=== PATIENT | male | born 1955 | race Caucasian/White ===

== ENCOUNTER → 2019-10-17 13:43 | Outpatient (POV) | payer MEDICARE, OTHER, SELFPAY | DX: Z00.00 Encounter for general adult medical examination without abnormal findings (principal) ==

== ENCOUNTER → 2020-10-30 10:48 | Outpatient (CLI) | payer MEDICARE, OTHER, SELFPAY | PROVIDERS: PCP Family Medicine; Visit Provider Nurse Practitioner Family | DX: Z20.822 Contact with and (suspected) exposure to COVID-19 (principal) | CPT/HCPCS: U0003 ==

== ENCOUNTER → 2020-11-19 13:59 | Outpatient (POV) | payer MEDICARE, OTHER, SELFPAY | DX: Z00.00 Encounter for general adult medical examination without abnormal findings (principal) ==

== ENCOUNTER 2022-04-25 07:45 | Emergency (ER) | payer MEDICARE, OTHER, SELFPAY ==
[2022-04-25 07:53] VITALS: BP 150/91; PULSE 87; RESP 17; TEMP 37.7; O2SAT 96; BMI 26.9
--- NOTE | 2022-04-25 07:56 | XR_ITS ---
PROCEDURE INFORMATION: Exam: XR Chest Exam date and time: 04/25/2022 8:11 AM Age: 66 years old Clinical indication: Other: Weakness; Additional info: Weakness post-covid TECHNIQUE: Imaging protocol: Radiologic exam of the chest. Views: 1 view. COMPARISON: No relevant prior studies available. FINDINGS: Lungs: Faint opacities in the mid and lower left lung. Pleural spaces: Unremarkable. No pleural effusion. No pneumothorax. Heart/Mediastinum: Calcified mediastinal lymph node. Bones/joints: Unremarkable. IMPRESSION: Faint opacities in the mid and lower left lung.
--- NOTE | 2022-04-25 08:00 | PC.NURSE ---
portable xr at the bedside
[2022-04-25 08:10] LABS: Influenza A, PCR Not Detected (NotDetected); Influenza B, PCR Not Detected (NotDetected)
--- NOTE | 2022-04-25 08:10 | PC.NURSE ---
pt provided blanket. fluids hung per MAR
[2022-04-25 08:23] LABS: Basophils # 0.1 K/mm3 (0-0.2); Basophils % 0.7 % (0.1-2.0); Hematocrit 42.3 % (42.0-52.0); Hemoglobin 13.8 g/dL (14.1-18.0); Lymphocytes # 0.4 K/mm3 (0.7-4.5); Lymphocytes % 6.1 % (10-50); Mean Corpuscular HGB Conc 32.7 g/dL (31.8-35.4); Mean Corpuscular Volume 91.6 fl (80-94); Mean Platelet Volume 9.2 fl (7.4-10.4); Monocytes # 0.4 K/mm3 (0.1-1.0); Monocytes % 5.2 % (1.7-9.3); Neutrophils # 6.3 K/mm3 (1.8-7.8); Neutrophils % 87.9 % (37.0-80.0); Platelet Count 267 K/mm3 (142-424); Red Blood Count 4.62 M/mm3 (4.60-6.20); White Blood Count 7.2 K/mm3 (4.8-10.8)
[2022-04-25 08:24] LABS: Alanine Aminotransferase 24 U/L (12-78); Albumin Level 3.8 g/dl (3.5-5.0); Albumin/Globulin Ratio 1.1 (1.1-1.8); Alkaline Phosphatase 128 U/L (38-126); Anion Gap 14.6 mEq/L (5-15); Aspartate Amino Transferase 31 U/L (17-59); Blood Urea Nitrogen 27 mg/dl (9-20); Calcium 9.1 mg/dl (8.4-10.2); Carbon Dioxide 27 mmol/L (22.0-30.0); Chloride 95 mmol/L (98-107); Creatinine Clearance Estimated 69 mL/min (50-200); Estimated Glomerular Filt Rate 51 ml/min (>60); GFR (African American) 61 ML/MIN (>60); Globulin 3.6 g/dL (1.3-3.2); Glucose 394 mg/dl (74-100); Potassium 4.6 mmoL/L (3.5-5.1); Sodium 132 mmol/L (136-145); Total Protein,Serum 7.4 g/dl (6.3-8.2)
[2022-04-25 08:26] LABS: MANUAL DIFFERENTIAL MANUAL DIFFERENTIAL (MANUAL DIFF)
[2022-04-25 08:28] VITALS: BP 156/97; PULSE 78; RESP 22; O2SAT 99
[2022-04-25 08:30] VITALS: BP 141/81; PULSE 74; RESP 18; O2SAT 100
[2022-04-25 08:34] LABS: Coronavirus 19, PCR Detected (NotDetected)
--- NOTE | 2022-04-25 08:40 | HMH.EDGENADL ---
Discharge Plan Disposition Patient Disposition: Home, Self-Care Condition: Good Chief Complaint: Upper Respiratory Infection Referrals Follow up/Referrals: Forrest Cole MD [Primary Care Provider] - See instructions Activity Restrictions/Add. Instructions Additional Instructions/Restrictions: Please restart your home medications today. ADDITIONAL INSTRUCTIONS FOR COVID-19: Rest, drink plenty of fluids. Tylenol or Ibuprofen for fever and/or aches and pains. Monitor your symptoms. IF YOU HAVE AN EMERGENCY WARNING SIGN (INCLUDING TROUBLE BREATHING), SEEK EMERGENCY MEDICAL CARE IMMEDIATELY. COVID-19 Isolation: People with COVID-19 should isolate for 5 days. Then if they are asymptomatic (no symptoms) or their symptoms are resolving (without fever for 24 hours), follow that by 5 days of wearing a mask when around others to minimize the risk of infecting people you encounter. If you test positive for COVID-19 and never develop symptoms, day 0 is the day of your positive viral test (based on the date you were tested) and day 1 is the first full day after your positive test. If you develop symptoms after testing positive, your 5-day isolation period must start over. Day 0 is your first day of symptoms. Day 1 is the first full day after your symptoms developed. What to do: Stay in a separate room from other household members, if possible. Use a separate bathroom, if possible. Avoid contact with other members of the household and pets. Don?t share personal household items, like cups, towels, and utensils. Wear a mask when around other people if able. Clinical Impressions Clinical Impression: COVID-19 virus infection, Hyperglycemia Discharge ED Provider: Hermann Bentley General Adult HPI General Chief complaint: Upper Respiratory Infection Stated complaint: covid positive weak,can't sleep Time Seen by Provider: 04/25/22 08:40 Mode of Arrival: Ambulatory Source of Information: Patient Limitations: No Limitations Description of Symptoms (Recalled from ER Triage Doc. by RN): pt to ed c/o weakness and diarrhea. pt states he tested covid + last at his pcp office. pt states hes not had an appetite, hasnt't been able to sleep and just feel weak. History of Present Illness HPI narrative: History obtained from patient and . They both tested positive for COVID the week before last. The patient has been sick for about 11 to 12 days. He tested positive for COVID 10 days ago. He is concerned because he still has no energy. He still has a cough. He has not been taking his medications for the past 2 to 3 days. He is diabetic and hypertensive and has high cholesterol. He is a non-smoker. He was not vaccinated against COVID. Related Data Allergies Allergy/AdvReac Type Severity Reaction Status Date / Time sulfamethoxazole Allergy Verified 04/25/22 07:56 [From Bactrim] trimethoprim [From Bactrim] Allergy Verified 04/25/22 07:56 [facility] Social History (Updated 04/25/22 @ 09:21 by Antonina Gale RN) Smoking Status: Never smoker alcohol intake: never current occupational status: other Travel in the last 8 weeks: None ROS Obtained: Yes Systems reviewed as appropriate & no additional complaints except as documented Constitutional Constitutional: Denies fever(s) Cardiovascular Cardiovascular: Denies chest pain Respiratory Respiratory: Reports cough Gastrointestinal Gastrointestingal: Denies diarrhea or vomiting Physical Exam General General appearance: alert and in no apparent distress Head Head exam: atraumatic and normocephalic Eye Eye exam: Present normal appearance and EOMI; Absent conjunctival injection ENT ENT exam: Present normal exam, normal oropharynx, mucous membranes moist and TM's normal bilaterally Neck Neck exam: Present normal inspection and trachea midline Chest Chest inspection: Present normal inspection and symmetric chest wall rise Respiratory R
--- NOTE | 2022-04-25 08:43 | PC.NURSE ---
breakfast tray ordered for patient
[2022-04-25 09:00] VITALS: BP 152/85; PULSE 74; RESP 18; O2SAT 99
[2022-04-25 09:14] VITALS: BP 152/85; PULSE 76; RESP 18; TEMP 37.2; O2SAT 97
[2022-04-25 11:06] LABS: Lymphocytes % 7 % (10-50); Monocytes % 2 % (2-9); Neutrophils % 91 % (42-76); Platelet Estimate Normal; RBC Morphology Normal; Total Cells Counted 100
== END 2022-04-25 09:22 | disposition home or self-care (01) ==
PROVIDERS: Emergency Provider Emergency Medicine; PCP Family Medicine
DX: U07.1 COVID-19 (principal); R06.9 Unspecified abnormalities of breathing; R53.1 Weakness; R05.9 Cough, unspecified; Z28.310 Unvaccinated for COVID-19; I10 Essential (primary) hypertension; N28.9 Disorder of kidney and ureter, unspecified; E78.00 Pure hypercholesterolemia, unspecified; E11.65 Type 2 diabetes mellitus with hyperglycemia; Z88.2 Allergy status to sulfonamides; Z88.8 Allergy status to other drugs, medicaments and biological substances
CPT/HCPCS: 71045; 80053; 85007; 85025; 96360; 96361; 99284; C9803; U0003; U0005

== ENCOUNTER → 2023-03-13 10:24 | Outpatient (CLI) | payer MEDICARE, OTHER, SELFPAY ==
--- NOTE | 2023-03-13 10:45 | XR_ITS ---
PROCEDURE INFORMATION: Exam: XR Left Shoulder Exam date and time: 03/13/2023 10:36 AM Age: 67 years old Clinical indication: Pain; Shoulder; Left; Additional info: Pain no injury TECHNIQUE: Imaging protocol: Radiologic exam of the left shoulder. Views: 2 or more views. COMPARISON: CR XR CHEST PORTABLE 04/25/2022 8:11 AM FINDINGS: Bones/joints: Moderate degenerative changes glenohumeral articulation. Foci of cystic change within the humeral head. AC degenerative arthritic type change. Potential for impingement. Soft tissues: Calcified left hilar lymph nodes partially visualized. IMPRESSION: 1. Moderate degenerative changes glenohumeral articulation. 2. AC degenerative arthritic type change. Potential for impingement.
--- NOTE | 2023-03-13 10:45 | XR_ITS ---
PROCEDURE INFORMATION: Exam: XR Lumbosacral Spine Exam date and time: 03/13/2023 10:40 AM Age: 67 years old Clinical indication: Low back pain; Additional info: Pain no injury TECHNIQUE: Imaging protocol: Radiologic exam of the lumbosacral spine. Views: 2 or 3 views. COMPARISON: No relevant prior studies available. FINDINGS: Bones/joints: Lumbar spondylosis. Multilevel disc degenerative changes most pronounced L1-L2, L4-L5 and L5-S1. Soft tissues: Unremarkable. IMPRESSION: Lumbar spondylosis with multilevel disc degeneration.
== END ==
PROVIDERS: PCP Family Medicine; Visit Provider Family Medicine
DX: M54.50 Low back pain, unspecified (principal); M25.512 Pain in left shoulder
CPT/HCPCS: 72100; 73030

== ENCOUNTER 2023-04-28 08:00 | Outpatient (RCR) | payer MEDICARE, OTHER, SELFPAY ==
--- NOTE | 2023-04-26 09:53 | HMH.RHREAS ---
Rehab Reassessment Rehab OP Re-assessment Start: 03/28/23 13:00 Freq: Status: Active Protocol: Document 04/26/23 08:01 EMMACRISTHIAN (Rec: 04/26/23 09:53 NOELLE [id number]) E-signed By Ludmila Oconnell PT Rehab Re-assessment Subjective Subjective Pt reports he feels 80% better since starting PT. Pt reports pain comes and goes. Pt reports pain is worse in the mornings and with initial movements. Pt reports pain at worst as 8/10. Pt also reports intermittent sharp, shooting pain down his posterior legs with standing/walking. Pt reports he is mostly compliant with his HEP. Objective Objective Notes Lumbar AROM: 85 flex, 20 ext, 20 LF LE MMT: hip flex 5/5, hip ext 4/5 on L 4-/5 on R, hip abd/ add 4+/5 Assessment Progress Assessment Progressing as Expected Assessment Notes Pt has attended 6 PT visits consisting of aerobic exercise , lumbar flexion based exercises, hip/core strengthening, LE stretching, manual therapy and modalities. Pt demonstrated improved lumbar AROM and hip strength this date compared to the initial evaluation. Pt continues to report moderate- severe low back pain and radiating pain into bilateral posterior legs with standing/ walking improved with flexion. Pt would continue to benefit from skilled PT to further improve subjective report of pain/radicular symptoms, LE/ core strength, and flexibility to assist with functional activity tolerance and improve overall QOL. Patient goals met ST/5 Goals Not Met LTG Revised Goals n/a Plan Plan Continue initial POC Frequency of Therapy 2x/week Duration of therapy 4 more weeks Time and Billing
== END 2023-04-28 08:05 | disposition home or self-care (01) ==
LOC: PT 08:00
PROVIDERS: PCP Family Medicine; Visit Provider Family Medicine
DX: M54.50 Low back pain, unspecified (principal)
CPT/HCPCS: 97010; 97014; 97110; 97140; 97163; 97164; 97530; G0283

== ENCOUNTER 2023-11-08 11:14 | Outpatient (POV) | payer MEDICARE, OTHER, SELFPAY | END 2023-11-08 23:59 | disposition home or self-care (01) | LOC: SC 11:15 | PROVIDERS: PCP Family Medicine; Visit Provider Dermatology | DX: Z00.00 Encounter for general adult medical examination without abnormal findings (principal) ==

== ENCOUNTER 2025-02-15 07:54 | Outpatient (CLI) | payer MEDICARE, OTHER, SELFPAY ==
--- OUTSIDE RECORDS SUMMARY | 2021-04-16 04:00 | XMS_ITS | Continuity of Care Document ---
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 start 2 days prior to surgery. 1 drop morning of surgery. continue per post op instructions - Active 3ML/ PATIIENT HAS [employer] metformin 500 mg tablet take 1 tablet by oral route 2 times every day with morning and evening meals 500 MG - Active atorvastatin 40 mg tablet take 1 tablet by oral route every day 40 MG - Active gabapentin 800 mg tablet take 1 tablet by oral route 3 times every day 800 MG - Active glimepiride 4 mg tablet take 1 tablet by oral route every day 4 MG - Active tramadol 50 mg tablet take 1 tablet by oral route every 6 hours as needed 50 MG - Active aspirin 81 mg chewable tablet chew 1 tablet by oral route every day 81 MG - Active naproxen 250 mg tablet take 1 tablet by oral route 2 times every day with food 250 MG - Active lisinopril 20 mg tablet take 1 tablet by oral route every day 20 MG - Active ofloxacin 0.3 % eye drops instill 1 drop by ophthalmic route 4 times every day into surgical eye starting 2 days prior to surgery. - Active prednisolone acetate 1 % eye drops,suspension instill 1 drop 3 times a day into surgical eye start 2 days prior to surgery. 1 drop morning of surgery. taper per post op instructions - Active 5ml. OR A 30 DAY SUPPLY Procedures Procedure Date Post Op Follow Up Visit Post Op Follow Up Visit Post Op Follow Up Visit Extracapsular Cataract With IOL Manual Or Mech Complex Wo Endoscopic Cyclo Extracapsular Cataract With IOL Manual O r Mech Complex Ophthalmic Biometry W Iol Calculation Un ilateral OFFICE/OUTPATIENT VISIT, [facility] Advance Directives Directive Yes / No Effective Date File Name No Information Encounters Encounter Description Practice Location Reason(s) For Visit Diagnoses Date Provider Providers Copied on Encounter [facility] , [address] [place], [address], tel:[phone] [facility] 1 month phaco OD (chief complaint) Encounter for surgical aftercare following surgery on a sense organ Edmar Magaña. [address] [place], [place], [id number]. tel:[phone] Referring Provider: Enrique Myles, [address] [address], [place], [address]. tel:[phone] [facility] , [address] [place], [address], tel:[phone] [facility] POW1 Phaco OD (chief complaint) Encntr for surgical aftcr fol surgery on the sense organs Yulissa Chicas. [address] [place], [place], [id number]. tel:[phone] Referring Provider: Enrique Myles, [address] [address], [place], [address]. tel:[phone] [facility] , [address] [place], [address], [place] tel:[phone] [facility] same day p.phakia f/u (chief complaint) Encounter for surgical aftercare following surgery on a sense organ Edmar Magaña. [address] [place], [place], [id number]. tel:[phone] Referring Provider: Enrique Myles, [address], [place], [address]. tel:[phone] [facility] , [address] [place], [address], [place] tel:[phone] [facility] Surgery [place] Cataract - MATURE, one or both eyes Edmar Magaña. [address] [place], [place], [id number]. tel:[phone] Referring Provider: Enrique Dolan, [address], [place], [address]. tel:[phone] [facility], [address] [place], [address], tel:[phone] [facility] Surgery [facility] Cataract - MATURE, one or both eyes [facility] [place]. [address] [place], [place], [id number], [place]. tel:[phone] Referring Provider: Gómez Acuna, [address] [place], [address]. tel:[phone] OFFICE/OUTPATI ENT VISIT, [facility] , [address] [place], [address], tel:[phone] [facility] Cataract consult (chief complaint) Cataract - MATURE, one or both eyes Edmar Magaña. [address] [place], [place], [id number]. tel:[phone] Referring Provider: Enrique Myles, [address], [place], [address]. tel:[phone] Family History Family Member Type Diagnosis Age At Onset Problem No family history of Diabete s mellitus Father Problem prostate cancer Sister Problem cancer of colon Problem No family history of Hyperte nsion Problem No family history of Glaucom a Problem No family history of Retinal disease Problem No family history of Catarac ts Payers Payer name Insurance type Covered constitution party ID Authoriza tion(s) Medicare [place] [id number] Miguel Angel DENT[employer] - [id number] Social History Type Description Quantity Date Captured Comments Alcohol Use Details Caffeine Use Details Unknown Tobacco Use Status Current non-smoker 21 Smoking Status Never smoker Sex Male Chief Complaint And Reason For Visit From encounter dated '04/16/2021 08:00'. 1 month phaco OD (chief complaint). Description: The 65 year old male presents for evaluation of 1 month phaco OD in the right eye. Pt describes vision to be good. Denies eye pain, flashes, floaters,or headaches. Pt has finished his drops. Reason For Referral Reason For Referral No Information History Of Present Illness Encounter Date Complaint History Of Prese nt Illness 1 month phaco OD The 65 year old male presents for evaluation of 1 month phaco OD in the right eye. Pt describes vision to be good. Denies eye pain, flashes, floaters, or headaches. Pt has finished his drops. POW1 Phaco OD The 65 year old male presents for evaluation of POW1 Phaco OD. Patient states his vision has improved since the last visit. He denies eye pain, flashes, floaters, or headaches. His accidently gave him the Ofloxacin eye drop this morning and discarded the drop once she realized what it was. He is using pred and Prolensa as directed. same day p.phakia f/u The 65 yea r old male presents for same day s/p phaco/IOL in the right eye. Pt. noted some scratchiness OD earlier today but it is gone now. Va. is better but is still blurry somewhat. No eye pain. Cataract consult The 65 year old male presents for evaluation of cataract. Decreased vision OD x 1-2 years. I can't see anything! All I can see is light. I can't tie a fishing line on my hook. Glare problems driving at night. Occasional little itching. No pain or tearing OU. Occasional floaters no new floaters no flashes. (+cataract surgery OS)(-) LASIK/Refractive(-) Eye Trauma(-) Crossed Eye/Lazy Eye(-) Flomax(+asa(-) Contact Use Functional Status Date Functional Assessmen t No Information Instructions Date Instruction Additional Infor osbaldo Impression/Plan Related to Encou nter for surgical aftercare following surgery on a sense organ Impression/Plan Related to Encnt r for surgical aftcr fol surgery on the sense organs Impression/Plan Related to Encou nter for surgical aftercare following surgery on a sense organ Impression/Plan Related to Catar act - MATURE, one or both eyes Assessments Type Assessment Date assessment Encounter for surgic al aftercare following surgery on a sense organ Patient Care Teams Name Effective Dates (start - stop) Status Members No Information
--- OUTSIDE RECORDS SUMMARY | 2023-09-08 05:00 | XMS_ITS ---
Author Organization [facility] Address [address] [place] [address] [address] [place] [id number] Care Team Providers Care Digital Artist Name Role Phone True Cole Primary Care Provider Allergies Allergen (clinical drug ingredient) Drug/Non Drug Allergy documented on EMR Reaction Allergy Type Onset Date Status pioglitazone Actos tremors Drug Allergy Acti ve canagliflozin Invokana elevated cholesterol Drug Allergy Active empagliflozin Jardiance tremors Drug Allergy Act luisa linagliptin / metformin Jentadueto joint pain Drug Allergy Active Substance with sulfonamide structure and antibacterial mechanism of action (substance) Sulfa Antibiotics hives, rash Drug Allergy Active Reason For Referral Reason suspicious lesion be hind right ear Diagnosis 1 Neoplasm of uncertai n behavior of skin (D48.5) Referral Organization [facility] Referring Provider First Name True Mcconnell Referring Provider Last Name Kelsey Referring Provider Speciality Family Pra ctice Referred Organization [facility] OP Referred Provider Sarah Johnson Referred Address [address] [place] [address] [address] [facility] [place] [id number], Referred Provider Specialty Dermatology General Notes Candelaria Day 09/12/19 10:10:36 AM > [phone] no answer, DayCandelaria 09/12/2023 11:18:16 AM > Oct 12 @ 910am....left message for call back Candelaria Day 09/12/2023 11:52:42 AM > pt informed Referral Priority Routine REASON FOR VISIT 6 month check Medications Medication SIG (Take, Route, Frequency, Duration) Notes Start Date End Date Status traMADol HCl 50 MG 1 tab(s) orally ever y 4 hours as needed 09/08/2023 Active Gabapentin 800 MG 1 tab(s) orally Thre e times a day 09/08/2023 Active Sildenafil Citrate 20 MG 1-2 tab(s) orally as directed 11/28/2020 Active Glimepiride 4 MG 1 tab(s) orally Two times a day for 90 days Active Doxazosin Mesylate 4 MG 1 tab(s) orally qhs for 30 day(s) 01/15/2021 Not-Taking metFORMIN HCl 500 MG 1 tab(s) orally 2 t imes a day Active Lisinopril 20 MG 1 tab(s) orally once a day for 90 Active Trulicity 3 MG/0.5ML as directed subcutaneously once a week Active RELION GLUCOSE TEST STRIPS 1 TEST STRIP FINGERSTICK TEST 3 TIMES A DAY OR DIRECTED for 90 DAYS 02/05/2020 Active Naproxen Sodium 220 MG 1 tab(s) orally bid Active Lipitor 40 MG 1 tab(s) orally once a day (at bedtime) for 90 Active RELION GLUCOSE LANCETS 1 LANCET FINGERST ICK TEST 3 TIMES A DAY OR DIRECTED for 90 DAYS 02/05/2020 Active RELION BLOOD GLUCOSE MONITOR 1 METER FINGERSTICK TEST 3 TIMES A DAY OR DIRECTED for 30 DAYS 02/05/2020 Active Novofine Pen Needle 32G X 6 MM as directed Active OneTouch Ultra DIRECTED TEST TID Active Aspirin 1 P.O. Q DAY Active Vital Signs Blood pressure systolic 134 mm Hg 09/08/19 24 Blood pressure diastolic 78 mm Hg 024 Heart Rate 100 /min 09/08/2023 Height 72 in 09/08/2023 Weight 208.6 lbs 09/08/2023 BMI 28.29 kg/m2 09/08/2023 Encounters Encounter Location Date Provider Diagnosis [facility] [address] [facility] [address] [place], [place] [id number] 09/08/2023 R Jayesh Cole Essential hypertensi on I10 ; Type 2 diabetes mellitus with diabetic polyneuropathy E11.42 ; Primary osteoarthritis M19.91 ; Dyslipidemia E78.5 ; Low back pain at multiple sites M54.50 ; Impingement syndrome of left shoulder M75.42 and Neoplasm of uncertain behavior of skin D48.5 Assessments Encounter Date Diagnosis (ICD Code) Assessment Notes Treatment Notes Treatment Clinical Notes Section Notes 09/08/2023 Essential hypertension (ICD-10 - I10) 09/08/2023 Type 2 diabetes mellitus with diabetic polyneuropathy (ICD-10 - E11.42) 09/08/2023 Primary osteoarthritis (ICD-10 - M19.91) 09/08/2023 Dyslipidemia (ICD-10 - E78.5) 09/08/2023 Low back pain at multiple sites (ICD-10 - M54.50) 09/08/2023 Impingement syndrome of left shoulder (ICD-10 - M75.42) Offered ortho referral but he declines for now 09/08/2023 Neoplasm of uncertain behavior of skin (ICD-10 - D48.5) 09/08/2023 Other Order given to obtain labs prior to next visit Plan Of Treatment Medication Medication Name Sig Start Date Stop Date Notes traMADol HCl 50 MG 1 tab(s) orally ever y 4 hours as needed 09/08/2023 Gabapentin 800 MG 1 tab(s) orally Three times a day 2023 metFORMIN HCl 500 MG 1 tab(s) orally 2 times a day Lisinopril 20 MG 1 tab(s) orally once a day for 90 Trulicity 3 MG/0.5ML as directed subcuta neously once a week Lipitor 40 MG 1 tab(s) orally once a day (at bedtime) for 90 Treatment Notes Assessment Notes Impingement syndrome of left shoulder Of fered ortho referral but he declines for now Other Order given to obtai n labs prior to next visit Referrals Referral Date Details 09/09/2023 09/09/2023, suspicio us lesion behind right ear, Sarah Johnson, [address] [place], [place], [phone], Next Appt Details Follow Up: 6 Months, Reason: Provider Name:True Basilio, 03/21/2025 09:00:00 AM, [address], [place], [place], [id number], Progress Notes * SUE MOONEY JR RDOB: (69 yo M)Acc No.[id number]:09/08/2023 Progress Notes Patient: S SUE SANTOYO JR Provider: True Cole M.D. :1955 A ge:68 Y S ex:Male Date:09/08/2023 Address:[address], [place], [id number] Subjective: * Chief Complaints: * 1 . 6 month check. * HPI: E ndocrinology: Pt is here for a 6 month check up. He brings in recent labs for review. Pt needs refills today. He has been taking medication as directed but not compliant with diet. C ardiology: Denies : Chest Pain. D enies : Short of Breath. D enies : Palpitations. D enies : Leg Edema. R heumatology: He states his back pain is better after course of physical therapy and has been taking a B12 supplement which he also thinks helps. He tells me that physical therapy did not address his shoulder issue. He still has limited range of motion but is not having much pain. D ermatology: He complains of a skin lesion behind his right ear that has been present for several months. * ROS: G ASTROENTEROLOGY: no V omiting. n o D iarrhea. M USCULOSKELETAL: no J oint stiffness. J oint pain y es. ? N EUROLOGY: no H eadache. n o D izziness. * Medical History: D M, Hyperlipidemia, Diabetic peripheral neuropathy, HBP, Declines Pneumovax 02/2016, 08/2016, Medication noncompliance with insulin, Declines colon cancer screening - 08/2018, 08/2019, 11/2020, 05/2021, 02/2022, Declines all vaccines 08/2019, 11/2020, 05/2021, 02/2022. * Surgical History: 3 .5 cm basal cell removed from back by MOHS procedure 2006, left cataract 01/2011, right cataract 03/2021. * Hospitalization/Major Diagno stic Procedure: N ONE . * Family History: F ather: alive 73 yrs. M other: alive 73 yrs. 5 sister(s) . . * Social History: C URRENT TOBACCO USE S moking Status: Patient does NOT smoke. C affeine: no, frequency:DAILY. Home smoke detector use: yes. Marital Status: . Past smoking status: no. Recreational drug use: no. Alcohol: no, Type: , Frequency: ,Years: , Determination:. * Medications: T aking Aspirin 1 P.O. Q DAY , Taking RELION BLOOD GLUCOSE MONITOR 1 METER FINGERSTICK TEST 3 TIMES A DAY OR DIRECTED , Taking RELION GLUCOSE LANCETS LANCETS 1 LANCET FINGERSTICK TEST 3 TIMES A DAY OR DIRECTED , Taking OneTouch Ultra DIRECTED TEST TID , Taking Novofine Pen Needle 32G X 6 MM Miscellaneous as directed , Taking Naproxen Sodium 220 MG Capsule 1 tab(s) orally bid , Taking RELION GLUCOSE TEST STRIPS TEST STRIPS 1 TEST STRIP FINGERSTICK TEST 3 TIMES A DAY OR DIRECTED , Taking Sildenafil Citrate 20 MG Tablet 1-2 tab(s) orally as directed , Taking Trulicity 3 MG/0.5ML Solution Pen-injector as directed subcutaneously once a week , Taking Lipitor 40 MG Tablet 1 tab(s) orally once a day (at bedtime) , Taking Lisinopril 20 MG Tablet 1 tab(s) orally once a day , Taking metFORMIN HCl 500 MG Tablet 1 tab(s) orally 2 times a day , Taking Glimepiride 4 MG Tablet 1 tab(s) orally Two times a day , Taking Gabapentin 800 MG Tablet 1 tab(s) orally Three times a day , Taking traMADol HCl 50 MG Tablet 1 tab(s) orally every 4 hours as needed , Not- Taking Doxazosin Mesylate 4 MG Tablet 1 tab(s) orally qhs , Medication List reviewed and reconciled with the patient * Allergies: S ulfa Antibiotics: hives, rash, Actos: tremors - Side Effects, Invokana: elevated cholesterol - Side Effects, Jardiance: tremors, Jentadueto: joint pain. Objective: * Vitals: W t:208.6, Temp:98.4, BP:134/78, HR:100, Nurse:FADY, Ht: 72, BMI:28.29. * Examination: C ardiology: General Appearance: p leasant, NAD. . Heart sounds: R RR, normal S1, S2. Murmur, click , gallop: n one. Extremities: n o leg edema. Left shoulder shows no deformity. There is no bony tenderness. Range of motion is decreased with abduction now to less than 90 degrees.. G eneral Examination: Skin: O naz the right mastoid, there is a 1 cm raised flesh-colored lesion which appears to have a small central ulceration. No tenderness or drainage..? Assessment: * Assessment: 1. E ssential hypertension - I10 (Primary) 2 . T ype 2 diabetes mellitus with diabetic polyneuropathy - E11.42 3 . P rimary osteoarthritis - M19.91 ? 4 . D yslipidemia - E78.5 5 . L ow back pain at multiple sites - M54.50 6 . I mpingement syndrome of left shoulder - M75.42 7 .?Neoplasm of uncertain behavior of skin - D48.5 Plan: * Treatment: 2. T ype 2 diabetes mellitus with diabetic polyneuropathy Refill metFORMIN HCl Tablet, 500 MG, 1 tab(s), orally, 2 times a day, 360, Refills 1; R efill Trulicity Solution Pen-injector, 3 MG/0.5ML, as directed, subcutaneously, once a week, 4, Refills 5; Refill Gabapentin Tablet, 800 MG, 1 tab(s), orally, Three times a day, 270, Refills 1. ? 3. P rimary osteoarthritis Refill traMADol HCl Tablet, 50 MG, 1 tab(s), orally, every 4 hours as needed, 180, Refills 1. ? 4. D yslipidemia Refill Lipitor Tablet, 40 MG, 1 tab(s), orally, once a day (at bedtime), 90, 90, Refills 1. ? 5. I mpingement syndrome of left shoulder Notes: Offered ortho referral but he declines for now 6. N eoplasm of uncertain behavior of skin Referral To:[facility] Reason:suspicious lesion behind right ear 7. O thers Notes: Order given to obtain labs prior to next visit * Follow Up: 6 Months * Billing Information: * Visit Code: 99475 Office Visit, Est Pt., Level 4. * Procedure Codes: * Electronic signature of True Cole MD on 02/15/2025 at 07:58 AM EDT Sign off status: Pending * Provider: True Cole M.D. Date: 0 09/08/2023 Generated for Joei tayler/Sherin/eTransmitting on: 0 02/15/2025 07:58 AM EDT History and Physical Notes * HPI (History of Present Illness) Category Sub-Category Detail Notes Category Not es Endocrinology He has been ta latesha medication as directed but not compliant with diet. Cardiology Short of Breath Chest Pain Palpitations Leg Edema Rheumatology He tells me gus t physical therapy did not address his shoulder issue. He still has limited range of motion but is not having much pain. Examination Category Sub-Category Detail Notes Category Not es General Examination Skin: Over the rig ht mastoid, there is a 1 cm raised flesh-colored lesion which appears to have a small central ulceration. No tenderness or drainage. Cardiology Heart sounds: RRR, normal S1, S2 Extremities: no leg edema. Left s houlder shows no deformity. There is no bony tenderness. Range of motion is decreased with abduction now to less than 90 degrees. Murmur, click , gallop: none General Appearance: pleasant, NAD. Consultation Request Notes Referral Date Referring Provider Referred Provider Not es 09/09/2023 True Cole Audra suspici ous lesion behind right ear
--- OUTSIDE RECORDS SUMMARY | 2024-03-08 05:00 | XMS_ITS ---
[facility] Address [address] [facility] [address] [place] [id number] Care Team Providers Care Senior Counsel Name Role Phone True Cole Primary Care Provider [phone] Allergies Allergen (clinical drug ingredient) Drug/Non Drug [...] Sulfa Antibiotics hives, rash Drug Allergy Active REASON FOR VISIT 6 months, Needs urine microalbumin, colon cancer screening, diabetic eye exam, & Prevnar vaccine, See lab results drawn by Dr. Lang's office 02/20/24 and 02/27/2024 in patient docs Medications Medication SIG (Take, Route, Frequency, Duration) Notes Start Date End Date Status Lisinopril 20 MG 1 tab(s) orally once a day for 90 Active Lipitor 40 MG 1 tab(s) orally once a day (at bedtime) for 90 Active Naproxen Sodium 220 MG 1 tab(s) orally bid Not-Taking Doxazosin Mesylate 4 MG 1 tab(s) orally qhs for 30 day(s) 01/15/2021 Not-Taking Sildenafil Citrate 20 MG 1-2 tab(s) orally as directed 11/28/2020 Not-Taking Tadalafil 20 MG 1 tablet as needed O rally as directed 03/08/2024 Active Glimepiride 4 MG 1 tab(s) orally Two times a day for 90 days Active OneTouch Ultra DIRECTED TEST TID Active RELION GLUCOSE TEST STRIPS 1 TEST STRIP FINGERSTICK TEST 3 TIMES A DAY OR DIRECTED for 90 DAYS 02/05/2020 Active Novofine Pen Needle 32G X 6 MM as directed Active Trulicity 3 MG/0.5ML as directed subcutaneously once a week Active RELION BLOOD GLUCOSE MONITOR 1 METER FINGERSTICK TEST 3 TIMES A DAY OR DIRECTED for 30 DAYS 02/05/2020 Active Aspirin 1 P.O. Q DAY Active Gabapentin 800 MG 1 tab(s) orally Thre e times a day 03/08/2024 Active RELION GLUCOSE LANCETS 1 LANCET FINGERST ICK TEST 3 TIMES A DAY OR DIRECTED for 90 DAYS 02/05/2020 Active traMADol HCl 50 MG 1 tab(s) orally ever y 4 hours as needed 03/08/2024 Active metFORMIN HCl 500 MG 1 tab(s) orally 2 t imes a day Active Problems Problem Type SNOMED Code ICD Code Onset Dates Problem Status W/U Status Risk Notes Problem Male erectile disorder (148956553) Male erectile disorder (F52.21) Active confirmed Problem Chronic kidney disease stage 3A (disorder) (114656427) Chronic kidney disease, stage 3a (N18.31) Active confirmed Vital Signs Blood pressure systolic 154 mm Hg 03/08/20 24 Blood pressure diastolic 78 mm Hg 024 Heart Rate 76 /min 03/08/2024 Height 72 in 03/08/2024 Weight 211.4 lbs 03/08/2024 BMI 28.67 kg/m2 03/08/2024 Encounters Encounter Location Date [facility] [address] [id number] 03/08/2024 True Cole Essential hypertensi on I10 ; Type 2 diabetes mellitus with diabetic polyneuropathy E11.42 ; Primary osteoarthritis M19.91 ; Dyslipidemia E78.5 ; Low back pain at multiple sites M54.50 ; Male erectile disorder F52.21 and Chronic kidney disease, stage 3a N18.31 Assessments Encounter Date Diagnosis (ICD Code) Assessment Notes Treatment Notes Treatment Clinical Notes Section Notes 03/08/2024 Essential hypertension (ICD-10 - I10) 03/08/2024 Type 2 diabetes mellitus with diabetic polyneuropathy (ICD-10 - E11.42) 03/08/2024 Primary osteoarthritis (ICD-10 - M19.91) 03/08/2024 Dyslipidemia (ICD-10 - E78.5) 03/08/2024 Low back pain at multiple sites (ICD-10 - M54.50) 03/08/2024 Male erectile disorder (ICD-10 - F52.21) 03/08/2024 Chronic kidney disease, stage 3a (ICD-10 - N18.31) Encouraged increased fluid intake, 80 - 100 ounces per day Plan Of Treatment Medication Medication Name Sig Start Date Stop Date Notes Lisinopril 20 MG 1 tab(s) orally once a day for 90 Lipitor 40 MG 1 tab(s) orally once a day (at bedtime) for 90 Tadalafil 20 MG 1 tablet as needed Orally as directed 02/26 Trulicity 3 MG/0.5ML as directed subcuta neously once a week Gabapentin 800 MG 1 tab(s) orally Three times a day 2023 traMADol HCl 50 MG 1 tab(s) orally ever y 4 hours as needed 03/08/2024 metFORMIN HCl 500 MG 1 tab(s) orally 2 times a day Treatment Notes Assessment Notes Chronic kidney disease, stage 3a Encoura ged increased fluid intake, 80 - 100 ounces per day Next Appt Details Follow Up: 6 Months, Reason: Provider Name:True Basilio, 03/21/2025 09:00:00 AM, [address], [address], [place], [place], [phone], Progress Notes * SUE MOONEY JR RDOB: (69 yo M)Acc No.[id number]:03/08/2024 Progress Notes Patient: Twan SANTOYO JR SUE Biswas Provider: True Cole M.D. :1955 A ge:68 Y S ex:Male Date:03/08/2024 Address:[address], [place], [id number] Subjective: * Chief Complaints: * 1 . 6 months. 2. Needs urine microalbumin, colon cancer screening, diabetic eye exam, & Prevnar vaccine. 3. See lab results drawn by Dr. Lang's office 02/20/24 and 02/27/2024 in patient docs. * HPI: C ardiology: He returns for scheduled checkup and refills. He had blood work done earlier in the week. He notes occasional mild swelling on the dorsum of his left foot. Denies : Chest Pain. D enies : Short of Breath. D enies : Palpitations. E ndocrinology: He feels like he is compliant with his diet. His weight has been relatively stable. M dafne Reproductive: He continues to have issues with erectile dysfunction. He did not see any benefit with the sildenafil. * ROS: G ASTROENTEROLOGY: no V omiting. n o D iarrhea. M USCULOSKELETAL: no J oint stiffness. J oint pain y es. ? N EUROLOGY: no H eadache. n o D izziness. * Medical History: D M, Hyperlipidemia, Diabetic peripheral neuropathy, HBP, Declines Pneumovax 02/2016, 08/2016, Medication noncompliance with insulin, Declines colon cancer screening - 08/2018, 08/2019, 11/2020, 05/2021, 02/2022, 02/2024, Declines all vaccines 08/2019, 11/2020, 05/2021, 02/2022, 02/2024, Mild proliferative diabetic neuropathy - followed by Dr. Boss. * Surgical History: 3 .5 cm basal cell removed from back by MOHS procedure 2006, left cataract 01/2011, right cataract 03/2021, Skin Cancer Removed from Upper Back 2023, Skin Lesion Removed from Behind Right Ear 2023. * Hospitalization/Major Diagno stic Procedure: N ONE [...] ,Years: , Determination:. * Medications: T aking Lipitor 40 MG Tablet 1 tab(s) orally once a day (at bedtime) , Taking Lisinopril 20 MG Tablet 1 tab(s) orally once a day , Taking metFORMIN HCl 500 MG Tablet 1 tab(s) orally 2 times a day , Taking Trulicity 3 MG/0.5ML Solution Pen-injector as directed subcutaneously once a week , Taking Gabapentin 800 MG Tablet 1 tab(s) orally Three times a day , Taking traMADol HCl 50 MG Tablet 1 tab(s) orally every 4 hours as needed , Taking Aspirin 1 P.O. Q DAY , Taking RELION BLOOD GLUCOSE MONITOR 1 METER FINGERSTICK TEST 3 TIMES A DAY OR DIRECTED , Taking RELION GLUCOSE LANCETS LANCETS 1 LANCET FINGERSTICK TEST 3 TIMES A DAY OR DIRECTED , Taking OneTouch Ultra DIRECTED TEST TID , Taking Novofine Pen Needle 32G X 6 MM Miscellaneous as directed , Taking RELION GLUCOSE TEST STRIPS TEST STRIPS 1 TEST STRIP FINGERSTICK TEST 3 TIMES A DAY OR DIRECTED , Taking Glimepiride 4 MG Tablet 1 tab(s) orally Two times a day , Not-Taking Naproxen Sodium 220 MG Capsule 1 tab(s) orally bid , Not-Taking Sildenafil Citrate 20 MG Tablet 1-2 tab(s) orally as directed , Not-Taking Doxazosin Mesylate 4 MG Tablet 1 tab(s) orally qhs , Medication List reviewed and reconciled with the patient * Allergies: S ulfa Antibiotics: hives, rash, Actos: tremors - Side Effects, Invokana: elevated cholesterol - Side Effects, Jardiance: tremors, Jentadueto: joint pain. Objective: * Vitals: W t:211.4, Temp:98.5, BP:154/78, HR:76, Nurse:FADY, Ht: 72, BMI:28.67. * Examination: C ardiology: General Appearance: p leasant, NAD. . Heart sounds: R RR, normal S1, S2. Murmur, click , gallop: n one. Extremities: n o leg edema. * Physical Examination: L ABS: See labs r charlette with patient. A1c is improved but not at goal. Creatinine mildly elevated.. Assessment: * Assessment: 1. E ssential hypertension - I10 (Primary) 2 . T ype 2 diabetes mellitus with diabetic polyneuropathy - E11.42 3 . P rimary osteoarthritis - M19.91 ? 4 . D yslipidemia - E78.5 5 . L ow back pain at multiple sites - M54.50 6 . M dafne erectile disorder - F52.21 7 . C hronic kidney disease, stage 3a - N18.31 Plan: * Treatment: 2. T ype 2 diabetes mellitus with diabetic polyneuropathy Refill metFORMIN HCl Tablet, 500 MG, 1 tab(s), orally, 2 times a day, 360, Refills 1; C ontinue Trulicity Solution Pen-injector, 3 MG/0.5ML, as directed, subcutaneously, once a week; R efill Gabapentin Tablet, 800 MG, 1 tab(s), orally, Three times a day, 270, Refills 1. 3. P rimary osteoarthritis Refill traMADol HCl Tablet, 50 MG, 1 tab(s), orally, every 4 hours as needed, 180, Refills 1. ? 4. D yslipidemia Refill Lipitor Tablet, 40 MG, 1 tab(s), orally, once a day (at bedtime), 90, 90, Refills 1. ? 5. M dafne erectile disorder Start Tadalafil Tablet, 20 MG, 1 tablet as needed, Orally, as directed, 20. 6. C hronic kidney disease, stage 3a Notes: Encouraged increased fluid intake, 80 - 100 ounces per day * Procedure Codes: 3 051F HG A1C>EQUAL 7.0%<8.0% * Follow Up: 6 Months * Billing Information: * Visit Code: 07793 Office Visit, Est Pt., Level 4. * Procedure Codes: 3051F HG A1C>EQUAL 7.0%<8.0%. * Electronic signature of True Cole MD on 02/15/2025 at 07:58 AM EDT Sign off status: Pending * Provider: True Cole M.D. Date: 03/08/2024 Generated for Sandra lester/Sherin/Ricardo on: 02/15/2025 07:58 AM EDT History and Physical Notes * HPI (History of Present Illness) Category Sub-Category Detail Notes Category Not es Cardiology Short of Breath Chest Pain Palpitations Physical Examination Category Sub-Category Detail Notes Section Note s LABS See labs reviewed with jones resendez. A1c is improved but not at goal. Creatinine mildly elevated. Examination Category Sub-Category Detail Notes Category Not es Cardiology Heart sounds: RRR, normal S1, S2 Extremities: no leg edema Murmur, click , gallop: none General Appearance: pleasant, NAD.
--- OUTSIDE RECORDS SUMMARY | 2024-09-18 05:00 | XMS_ITS ---
Author Organization [facility] Address [address] [facility] [address] [place] [id number] Care Team Providers Care Cash Applications Analyst Name Role Phone True Cole Primary [facility] [...] Sulfa Antibiotics hives, rash Drug Allergy Active Results Component Value Reference Range Notes colonoscopy Reviewed date:09/18/2024 10:23:00 AM Interpretation:declines Performing Lab: Notes/Report: declines REASON FOR VISIT 6 months check and AWV Medications Medication SIG (Take, Route, Frequency, Duration) Notes Start Date End Date Status Tadalafil 20 MG 1 tablet as needed O rally as directed Active traMADol HCl 50 MG 1 tab(s) orally ever y 4 hours as needed Active Naproxen Sodium 220 MG 1 tab(s) orally bid Not-Taking Glimepiride 4 MG 1 tab(s) orally Two times a day for 90 days Active Trulicity 3 MG/0.5ML INJECT 3 MG (0.5 ML ) UNDER THE SKIN ONCE A WEEK for 84 Active RELION GLUCOSE TEST STRIPS 1 TEST STRIP FINGERSTICK TEST 3 TIMES A DAY OR DIRECTED for 90 DAYS 02/05/2020 Active Novofine Pen Needle 32G X 6 MM as directed Active OneTouch Ultra DIRECTED TEST TID Active RELION GLUCOSE LANCETS 1 LANCET FINGERST ICK TEST 3 TIMES A DAY OR DIRECTED for 90 DAYS 02/05/2020 Active RELION BLOOD GLUCOSE MONITOR 1 METER FINGERSTICK TEST 3 TIMES A DAY OR DIRECTED for 30 DAYS 02/05/2020 Active metFORMIN HCl 500 MG 1 tab(s) orally 2 t imes a day Active Lisinopril 20 MG 1 tab(s) orally once a day for 90 Active Aspirin 1 P.O. Q DAY Active Gabapentin 800 MG 1 tab(s) orally Thre e times a day Active Trulicity 3 MG/0.5ML as directed subcutaneously once a week Active Doxazosin Mesylate 4 MG 1 tab(s) orally qhs for 30 day(s) 01/15/2021 Not-Taking Sildenafil Citrate 20 MG 1-2 tab(s) orally as directed 11/28/2020 Not-Taking Lipitor 40 MG 1 tab(s) orally once a day (at bedtime) for 90 Active Vital Signs Blood pressure systolic 156 mm Hg 09/18/19 25 Blood pressure diastolic 78 mm Hg 025 Heart Rate 97 /min 09/18/2024 Height 72 in 09/18/2024 Weight 209.4 lbs 09/18/2024 BMI 28.40 kg/m2 09/18/2024 Encounters Encounter Location Date Provider Diagnosis [facility] [address] [facility] [address] [place] [address], [place] [id number] 09/18/2024 True Cole Adult general medica l examination Z00.00 ; Essential hypertension I10 ; Type 2 diabetes mellitus with diabetic polyneuropathy E11.42 ; Primary osteoarthritis M19.91 ; Dyslipidemia E78.5 ; Low back pain at multiple sites M54.50 ; Male erectile disorder F52.21 ; Chronic kidney disease, stage 3a N18.31 ; Myalgia M79.10 and BMI 28.0-28.9,adult Z68.28 Assessments Encounter Date Diagnosis (ICD Code) Assessment Notes Treatment Notes Treatment Clinical Notes Section Notes 09/18/2024 Adult general medical examination (ICD-10 - Z00.00) Patient instructed to return to office Annually for Annual Wellness Visits to include annual screenings of Pain assessment, Functional Ability assessment, Cognitive Ability assessment, Fall Risk assessment, Depression screening and Bladder control screening. 09/18/2024 Essential hypertension (ICD-10 - I10) 09/18/2024 Type 2 diabetes mellitus with diabetic polyneuropathy (ICD-10 - E11.42) 09/18/2024 Primary osteoarthritis (ICD-10 - M19.91) 09/18/2024 Dyslipidemia (ICD-10 - E78.5) 09/18/2024 Low back pain at multiple sites (ICD-10 - M54.50) 09/18/2024 Male erectile disorder (ICD-10 - F52.21) 09/18/2024 Chronic kidney disease, stage 3a (ICD-10 - N18.31) Encouraged increased fluid intake, 80 - 100 ounces per day 09/18/2024 Myalgia (ICD-10 - M79.10) Recommend trial of CoQ10 supplement 09/18/2024 BMI 28.0-28.9,adult (ICD-10 - Z68.28) Plan Of Treatment Medication Medication Name Sig Start Date Stop Date Notes Tadalafil 20 MG 1 tablet as needed Orally as directed traMADol HCl 50 MG 1 tab(s) orally ever y 4 hours as needed metFORMIN HCl 500 MG 1 tab(s) orally 2 times a day Lisinopril 20 MG 1 tab(s) orally once a day for 90 Gabapentin 800 MG 1 tab(s) orally Three times a day Trulicity 3 MG/0.5ML as directed subcuta neously once a week Lipitor 40 MG 1 tab(s) orally once a day (at bedtime) for 90 Treatment Notes Assessment Notes Adult general medical examination Patien t instructed to return to office Annually for Annual Wellness Visits to include annual screenings of Pain assessment, Functional Ability assessment, Cognitive Ability assessment, Fall Risk assessment, Depression screening and Bladder control screening. Chronic kidney disease, stage 3a Encoura ged increased fluid intake, 80 - 100 ounces per day Myalgia Recommend trial of C oQ10 supplement Next Appt Details Follow Up: 6 Months, Reason: Provider Name:True Basilio, 03/21/2025 09:00:00 AM, [address], [address] , [place], [place], [id number], Progress Notes * SUE MOONEY JR RDOB: (69 yo M)Acc No.[id number]:09/18/2024 Annual Wellness Visit Patient: SUE NOEL JR Provider: True Cole M.D. :1955 A ge:69 Y S ex:Male Date:09/18/2024 Address:[facility] [address] [place], [id number] Subjective: * Chief Complaints: * 1 . 6 months check and AWV. * HPI: H PI: He comes in today for scheduled checkup and refills. He had recent blood work for review. His only complaint today is some muscle pain in his legs and lower back which is chronic in nature. He thinks it may be related to metformin but more likely related to his Lipitor. He continues to complain of some paresthesias in his feet from his neuropathy. * ROS: G ASTROENTEROLOGY: no V omiting. n o D iarrhea. M USCULOSKELETAL: no J oint stiffness. J oint pain y es. ? N EUROLOGY: no H eadache. n o D izziness. O PTHALMOLOGY: Negative for d enies vision issues. * Medical History: D M, Hyperlipidemia, Diabetic [...] TIMES A DAY OR DIRECTED , Taking metFORMIN HCl 500 MG Tablet 1 tab(s) orally 2 times a day , Taking Gabapentin 800 MG Tablet 1 tab(s) orally Three times a day , Taking Tadalafil 20 MG Tablet 1 tablet as needed Orally as directed , Taking Trulicity 3 MG/0.5ML Solution Auto-injector INJECT 3 MG (0.5 ML) UNDER THE SKIN ONCE A WEEK , Taking Glimepiride 4 MG Tablet 1 tab(s) orally Two times a day , Taking Lisinopril 20 MG Tablet 1 tab(s) orally once a day , Taking Lipitor 40 MG Tablet 1 tab(s) orally once a day (at bedtime) , Taking traMADol HCl 50 MG Tablet 1 tab(s) orally every 4 hours as needed , Not-Taking Naproxen Sodium 220 MG Capsule 1 tab(s) orally bid , Not-Taking Sildenafil Citrate 20 MG Tablet 1-2 tab(s) orally as directed , Not- Taking Doxazosin Mesylate 4 MG Tablet 1 tab(s) orally qhs , Medication List reviewed and reconciled with the patient * Allergies: S ulfa Antibiotics: hives, rash, Actos: tremors - Side Effects, Invokana: elevated cholesterol - Side Effects, Jardiance: tremors, Jentadueto: joint pain. Objective: * Vitals: W t:209.4, Temp:98.0, BP:156/78, HR:97, Nurse:FADY, Ht: 72, BMI:28.40. * Examination: C ardiology: General Appearance: p leasant, NAD. Weight is stable.? Heart sounds: R RR, normal S1, S2. Murmur, click , gallop: n one. Extremities: n o leg edema. * Physical Examination: G ENERAL: Pain Assessment: P ain level: 5, on a scale of 0-10 (with 10 being extreme pain). F unctional Status Assessment: P atient response to question of how often physical health interferes with daily activities: . Almost never Able to perform ADLs-including meal preparation, grocery shopping, housework, laundry, taking medications or handling finances. Cognitive Status: alert and oriented. Ambulation Status: Fully ambulatory . F all Risk Assessment: I ndependant in ambulation, adequate lighting in home. Patient has fallen or had trouble walking within the past 12 months. D epression Screening: George escoto depressed mood or anxiety. Describes emotional health as: positive. B ladder Control Screening: George escoto problems. Assessment: * Assessment: 1. A dult general medical examination - Z00.00 (Primary) 2 . E ssential hypertension - I10 3 . T ype 2 diabetes mellitus with diabetic polyneuropathy - E11.42 4 . P rimary osteoarthritis - M19.91 5 . D yslipidemia - E78.5 6 . L ow back pain at multiple sites - M54.50 7 . M dafne erectile disorder - F52.21 8 . C hronic kidney disease, stage 3a - N18.31? 9. M yalgia - M79.10 1 0. B MD 28.0-28.9,adult - Z68.28 ? Plan: * Treatment: 2. E ssential hypertension Refill Lisinopril Tablet, 20 MG, 1 tab(s), orally, once a day, 90, 90, Refills 1. 3. T ype 2 diabetes mellitus with diabetic polyneuropathy Refill metFORMIN HCl Tablet, 500 MG, 1 tab(s), orally, 2 times a day, 360, Refills 1; C ontinue Trulicity Solution Pen-injector, 3 MG/0.5ML, as directed, subcutaneously, once a week; R efill Gabapentin Tablet, 800 MG, 1 tab(s), orally, Three times a day, 270, Refills 1. 4. P rimary osteoarthritis Continue traMADol HCl Tablet, 50 MG, 1 tab(s), orally, every 4 hours as needed. 5. D yslipidemia Refill Lipitor Tablet, 40 MG, 1 tab(s), orally, once a day (at bedtime), 90, 90, Refills 1. ? 6. M dafne erectile disorder Continue Tadalafil Tablet, 20 MG, 1 tablet as needed, Orally, as directed. 7. C hronic kidney disease, stage 3a Notes: Encouraged increased fluid intake, 80 - 100 ounces per day 8. M yalgia Notes: Recommend trial of CoQ10 supplement * Imaging: * I maging: colonoscopy (Performed Date - 09/18/2024) d eclines * Procedure Codes: G 0439 ANNUAL WELLNESS VST; PPS SUBSQT VST, G0444 ANNUAL DEPRESSION SCREENING 15 MIN, 1090F PRES/ABSN URINE INCON ASSESS, 3288F FALL RISK ASSESSMENT DOCD, 1170F FXNL STATUS ASSESSED, 1159F MED LIST DOCD IN RCRD, 1003F LEVEL OF ACTIVITY ASSESS, 3052F HG A1C>EQUAL 8.0%<EQUAL 9.0%, 1036F TOBACCO NON-USER, 1125F AMNT PAIN NOTED PAIN PRSNT, G8510 NEG SCR Depression PT NOT ELIG F/U/PLN DOC, G8753 MOST RECENT SYSTOLIC BP >= 140MM HG, G8754 MOST RECENT DIASTOLIC BP < 90MM HG * Preventive Medicine: Counseling: E motional health: D iscussed ways to improve socialization. B ladder control: M ethods of controlling or managing leakage of urine discussed. E xercise: Patient advised to start, increase or maintain level of exercise/physical activity. I njury prevention: F all prevention discussed. Discussed need for cane/walker. Potential trip hazards discussed. Immunizations: P neumococcal r ecommended. I nfluenza r ecommended seasonally. Screening / Special Tests: C olonoscopy R ecent history:, declined in the past, recommended. P SA , normal. D iabetic Retinal Eye Exam R ecent history: 02/10/2024. * Follow Up: 6 Months * Billing Information: * Visit Code: 23728 Office Visit, Est Pt., Level 3. Modifiers: 25 * Procedure Codes: G0439 ANNUAL WELLNESS VST; PPS SUBSQT VST. G0444 ANNUAL DEPRESSION SCREENING 15 MIN. 1090F PRES/ABSN URINE INCON ASSESS. 3288F FALL RISK ASSESSMENT DOCD. 1170F FXNL STATUS ASSESSED. 1159F MED LIST DOCD IN RCRD. 1003F LEVEL OF ACTIVITY ASSESS. 3052F HG A1C>EQUAL 8.0%<EQUAL 9.0%. 1036F TOBACCO NON-USER. 1125F AMNT PAIN NOTED PAIN PRSNT. G8510 NEG SCR Depression PT NOT ELIG F/U/PLN DOC. G8753 MOST RECENT SYSTOLIC BP >= 140MM HG. G8754 MOST RECENT DIASTOLIC BP < 90MM HG. * Electronic signature of True Cole MD on 02/15/2025 at 07:58 AM EDT Sign off status: Pending * Provider: True Cole M.D. Date: 0 09/18/2024 Generated for Joei tayler/Sherin/eTransmitting on: 0 02/15/2025 07:58 AM EDT History and Physical Notes * Physical Examination Category Sub-Category Detail Notes Section Note s GENERAL Pain Assessment: Pain level: 5, on a scale of 0-10 (with 10 being extreme pain) Functional Status Assessment: Patient response to question of how often physical health interferes with daily activities: . Almost never Able to perform ADLs-including meal preparation, grocery shopping, housework, laundry, taking medications or handling finances. Cognitive Status: alert and oriented. Ambulation Status: Fully ambulatory Fall Risk Assessment: Independant in amb ulation, adequate lighting in home. Patient has fallen or had trouble walking within the past 12 months Depression Screening: Denies depressed m ood or anxiety. Describes emotional health as: positive Bladder Control Screening: Denies proble ms Examination Category Sub-Category Detail Notes Category Not es Cardiology Heart sounds: RRR, normal S1, S2 Extremities: no leg edema Murmur, click , gallop: none General Appearance: pleasant, NAD. Weigh t is stable
--- OUTSIDE RECORDS SUMMARY | 2025-02-15 07:58 | XMS_ITS ---
Author Organization Unknown Medications Date Medication Dosage DosageUnit StartDate StopDate StopReason Active DoseQuantity DoseUnit Dispense DispenseUnit Refills NdcCode DrugCode PharmacyId IsPrescription MappedMedication Srcstatus 09/18 00:00 :00 Aspirin 1 Taki ng 03/08 00:00 :00 Aspirin 1 Taki ng 09/18 00:00 :00 Doxazosin Mesylate 4 MG Tablet 01/15/2021 00:00:00 0 30 5 [id number] 6 801 P Not Taking 03/08 00:00 :00 Doxazosin Mesylate 4 MG Tablet 01/15/2021 00:00:00 0 30 5 [id number] 6 801 P Not Taking 10/15 00:00 :00 Gabapentin 800 MG Tablet 10/15/2024 00:00:00 1 270 0 [id number] 3 711 P Unknown Status 09/18 00:00 :00 Gabapentin 800 MG Tablet 1 270 1 35847 263 711 P Unknown Status 09/18 00:00 :00 Gabapentin 800 MG Tablet 03/08/2024 00:00:00 1 270 1 [id number] 3 711 P Taking 03/08 00:00 :00 Gabapentin 800 MG Tablet 03/08/2024 00:00:00 1 270 1 [id number] 3 711 P Unknown Status 03/08 00:00 :00 Gabapentin 800 MG Tablet 09/08/2023 00:00:00 1 270 1 [id number] 3 711 P Taking 09/18 00:00 :00 Glimepiride 4 MG Tablet 1 180 1 [id number] 77 501 P Taking 09/11 00:00 :00 Glimepiride 4 MG Tablet 1 180 1 [id number] 77 501 P Unknown Status 06/19 00:00 :00 Glimepiride 4 MG Tablet 1 180 Tablet 1 [id number] 501 P Unknown Status 06/18 00:00 :00 Glimepiride 4 MG Tablet 1 180 Tablet 1 [id number] 501 Start 06/18 00:00 :00 Glimepiride 4 MG Tablet 0 180 Tablet 1 [id number] 501 Stop 03/08 00:00 :00 Glimepiride 4 MG Tablet 1 180 Tablet 1 [id number] 501 Taking 09/18 00:00 :00 Lipitor 40 MG Tablet 1 90 1 [id number] 030 P Unknown Status 09/18 00:00 :00 Lipitor 40 MG Tablet 1 90 1 [id number] 030 P Taking 09/11 00:00 :00 Lipitor 40 MG Tablet 1 90 1 [id number] 030 P Unknown Status 03/08 00:00 :00 Lipitor 40 MG Tablet 1 90 1 [id number] 030 P Unknown Status 03/08 00:00 :00 Lipitor 40 MG Tablet 1 90 1 [id number] 030 P Taking 09/18 00:00 :00 Lisinopril 20 MG Tablet 1 90 1 [id number] 40 801 P Unknown Status 09/18 00:00 :00 Lisinopril 20 MG Tablet 1 90 1 [id number] 40 801 P Taking 09/11 00:00 :00 Lisinopril 20 MG Tablet 1 90 1 190303 40 801 P Unknown Status 03/08 00:00 :00 Lisinopril 20 MG Tablet 1 90 1 [id number] 40 801 P Unknown Status 03/08 00:00 :00 Lisinopril 20 MG Tablet 1 90 1 [id number] 40 801 P Taking 09/18 00:00 :00 metFORMIN HCl 500 MG Tablet 1 360 1 [id number] 18 505 P Unknown Status 09/18 00:00 :00 metFORMIN HCl 500 MG Tablet 1 360 1 [id number] 18 505 P Taking 03/08 00:00 :00 metFORMIN HCl 500 MG Tablet 1 360 1 [id number] 18 505 P Unknown Status 03/08 00:00 :00 metFORMIN HCl 500 MG Tablet 1 360 1 186402 18 505 P Taking 09/18 00:00 :00 Naproxen Sodium 220 MG Capsule 0 1191 7012 211 P Not Taking 03/08 00:00 :00 Naproxen Sodium 220 MG Capsule 0 1191 7012 211 P Not Taking 09/18 00:00 :00 Novofine Pen Needle 32G X 6 MM Miscellaneo us 1 [id number] 189 P Taking 03/08 00:00 :00 Novofine Pen Needle 32G X 6 MM Miscellaneo us 1 [id number] 189 P Taking 09/18 00:00 :00 OneTouch Ultra 1 P Taking 03/08 00:00 :00 OneTouch Ultra 1 P Taking 09/18 00:00 :00 RELION BLOOD GLUCOSE MONITOR 02/05/2020 00:00:00 1 1 0 P Taking 03/08 00:00 :00 RELION BLOOD GLUCOSE MONITOR 02/05/2020 00:00:00 1 1 0 P Taking 09/18 00:00 :00 RELION GLUCOSE LANCETS LANCETS 02/05/2020 00:00:00 1 300 3 P Taking 03/08 00:00 :00 RELION GLUCOSE LANCETS LANCETS 02/05/2020 00:00:00 1 300 3 P Taking 09/18 00:00 :00 RELION GLUCOSE TEST STRIPS TEST STRIPS 02/05/2020 00:00:00 1 300 3 P Taking 03/08 00:00 :00 RELION GLUCOSE TEST STRIPS TEST STRIPS 02/05/2020 00:00:00 1 300 3 P Taking 09/18 00:00 :00 Sildenafil Citrate 20 MG Tablet 11/28/2020 00:00:00 0 20 [id number] 1 798 P Not Taking 03/08 00:00 :00 Sildenafil Citrate 20 MG Tablet 11/28/2020 00:00:00 0 20 [id number] 1 798 P Not Taking 09/18 00:00 :00 Tadalafil 20 MG Tablet 1 [id number] 1 156 P Continue 09/18 00:00 :00 Tadalafil 20 MG Tablet 03/08/2024 00:00:00 1 20 [id number] 1 156 P Taking 03/08 00:00 :00 Tadalafil 20 MG Tablet 03/08/2024 00:00:00 1 20 [id number] 1 156 P Start 09/18 00:00 :00 traMADol HCl 50 MG Tablet 1 [id number] 0 101 P Continue 09/18 00:00 :00 traMADol HCl 50 MG Tablet 09/13/2024 00:00:00 1 180 1 [id number] 0 101 P Taking 09/13 00:00 :00 traMADol HCl 50 MG Tablet 09/13/2024 00:00:00 1 180 1 [id number] 0 101 P Unknown Status 03/08 00:00 :00 traMADol HCl 50 MG Tablet 03/08/2024 00:00:00 1 180 1 [id number] 0 101 P Unknown Status 03/08 00:00 :00 traMADol HCl 50 MG Tablet 09/08/2023 00:00:00 1 180 1 [id number] 0 101 P Taking 09/18 00:00 :00 Trulicity 3 MG/0.5M L Solution Pen-injecto r 1 50371018 601 P Continue 09/18 00:00 :00 Trulicity 3 MG/0.5M L Solution Auto-inject or 1 6 Millilite r 1 [id number] 680 P Taking 09/11 00:00 :00 Trulicity 3 MG/0.5M L Solution Auto-inject or 1 6 Millilite r 1 [id number] 680 P Unknown Status 08/27 00:00 :00 Trulicity 3 MG/0.5M L Solution Auto-inject or 1 6 Millilite r 1 [id number] 680 Start 08/27 00:00 :00 Trulicity 3 MG/0.5M L Solution Pen-injecto r 0 [id number] 601 Stop 03/08 00:00 :00 Trulicity 3 MG/0.5M L Solution Pen-injecto r 1 [id number] 601 P Continue 03/08 00:00 :00 Trulicity 3 MG/0.5M L Solution Pen-injecto r 1 4 5 [id number] 601 P Taking
--- OUTSIDE RECORDS SUMMARY | 2025-02-15 07:58 | XMS_ITS | Patient Health Record ---
[facility] Address [address] [facility] [address] [place] [id number] Care Team Providers Care Raiser Helper Name Role Phone True Cole Primary Care Provider [phone] Bonifacio Cruz Unavailable [phone] Allergies Allergen (clinical drug ingredient) Drug/Non Drug [...] 10:23:00 AM Interpretation:declines Performing Lab: Notes/Report: declines Glycohemoglobin (HbA1C) Reviewed date:03/08/2024 07:58:13 AM Interpretation:7.9 Performing Lab: Notes/Report: 7.9 glycohemoglobin 7.9 Glycohemoglobin (GHb),Total Reviewed date:09/20/2024 08:29:59 AM Interpretation:see multiple labs in document Performing Lab: Notes/Report: see multiple labs in document Glycohemoglobin (GHb), Total 8.3 Medications Medication SIG (Take, Route, Frequency, Duration) Notes Start Date End Date Status metFORMIN HCl 500 MG 1 tab(s) orally 2 t imes a day Active Doxazosin Mesylate 4 MG 1 tab(s) orally qhs for 30 day(s) 01/15/2021 Not-Taking Lisinopril 20 MG 1 tab(s) orally once a day for 90 Active Lipitor 40 MG 1 tab(s) orally once a day (at bedtime) for 90 Active OneTouch Ultra DIRECTED TEST TID Active Naproxen Sodium 220 MG 1 tab(s) orally bid Not-Taking RELION GLUCOSE LANCETS 1 LANCET FINGERST ICK TEST 3 TIMES A DAY OR DIRECTED for 90 DAYS 02/05/2020 Active RELION BLOOD GLUCOSE MONITOR 1 METER FINGERSTICK TEST 3 TIMES A DAY OR DIRECTED for 30 DAYS 02/05/2020 Active Aspirin 1 P.O. Q DAY Active Glimepiride 4 MG 1 tab(s) orally Two times a day for 90 days Active Trulicity 3 MG/0.5ML INJECT 3 MG (0.5 ML ) UNDER THE SKIN ONCE A WEEK for 84 Active Trulicity 3 MG/0.5ML as directed subcutaneously once a week Active Tadalafil 20 MG 1 tablet as needed O rally as directed Active RELION GLUCOSE TEST STRIPS 1 TEST STRIP FINGERSTICK TEST 3 TIMES A DAY OR DIRECTED for 90 DAYS 02/05/2020 Active traMADol HCl 50 MG 1 tab(s) orally ever y 4 hours as needed Active Novofine Pen Needle 32G X 6 MM as directed Active Sildenafil Citrate 20 MG 1-2 tab(s) orally as directed 11/28/2020 Not-Taking Gabapentin 800 MG 1 tab(s) orally Thre e times a day 10/15/2024 Active Immunizations Vaccine Route Administration Date Status Comme nts DT, 7 YEARS OR OLDER Unknown 11[birth year]03/1996 Administered Problems Problem Type SNOMED Code ICD Code Onset Dates Problem Status W/U Status Risk Notes Problem 89339720 Essential hypertension (I10) Active confirmed Problem 458097089 BMI 30.0-30.9,ad ult (Z68.30) Active confirmed Problem Male erectile disorder (284480204) Male erectile disorder (F52.21) Active confirmed Problem Polyneuropathy due t o type 2 diabetes mellitus (398038508) Type 2 diabetes mellitus with diabetic polyneuropathy (E11.42) Active confirmed Problem Pure hypercholesterolemia (579774027) Pure hypercholesterolemia (E78.0) Active confirmed Problem 906971088 Male erectile disorder (N52.9) Active confirmed Problem Primary osteoarthritis (736393680) Primary osteoarthritis (M19.91) Active confirmed Problem 614266145 Dyslipidemia (E78.5) Active confirmed Problem 703349741 Stage 3 chronic kidney disease (N18.3) Active confirmed Problem Chronic kidney disease stage 3A (disorder) (914350592) Chronic kidney disease, stage 3a (N18.31) Active confirmed Vital Signs Heart Rate 97 /min 09/18/2024 Blood pressure diastolic 78 mm Hg 09/18/2024 Height 72 in 09/18/2024 Blood pressure systolic 156 mm Hg 09/18/2024 Weight 209.4 lbs 09/18/2024 BMI 28.40 kg/m2 09/18/2024 Encounters Encounter Location Date Provider Diagnosis [facility] [address] [facility] [address] [place] [id number] 03/08/2024 R Jayesh Cole Essential hypertensi on I10 ; Type 2 diabetes mellitus with diabetic polyneuropathy E11.42 ; Primary osteoarthritis M19.91 ; Dyslipidemia E78.5 ; Low back pain at multiple sites M54.50 ; Male erectile disorder F52.21 and Chronic kidney disease, stage 3a N18.31 [facility] [address] [place] [id number] 09/18/2024 R Jayesh Cole Adult general medica l examination Z00.00 ; Essential hypertension I10 ; Type 2 diabetes mellitus with diabetic polyneuropathy E11.42 ; Primary osteoarthritis M19.91 ; Dyslipidemia E78.5 ; Low back pain at multiple sites M54.50 ; Male erectile disorder F52.21 ; Chronic kidney disease, stage 3a N18.31 ; Myalgia M79.10 and BMI 28.0-28.9,adult Z68.28 [facility] [address] [facility] [address] [place] [id number] 06/19/2024 R Jayesh Cole [facility] [address] [facility] [address] [place], [place] [id number] 09/11/2024 R Jayesh Cole Essential hypertensi on I10 and Dyslipidemia E78.5 [facility] [address] [facility] [address] [place], [place] [id number] 09/12/2024 R Jayesh Cole [facility] [address] [facility] [address] [place] [id number] 09/13/2024 R Jayesh Cole Primary osteoarthrit is M19.91 [facility] [address] [facility] [address] [place], [place] [id number] 10/15/2024 Bonifacio Cruz Type 2 diabetes anupama itus with diabetic polyneuropathy E11.42 Assessments Encounter Date Diagnosis (ICD Code) Assessment Notes Treatment Notes Treatment Clinical Notes Section Notes 03/08/2024 Type 2 diabetes mellitus with diabetic polyneuropathy (ICD-10 - E11.42) 03/08/2024 Essential hypertension (ICD-10 - I10) 09/11/2024 Essential hypertension (ICD-10 - I10) 09/13/2024 Primary osteoarthritis (ICD-10 - M19.91) 09/18/2024 Essential hypertension (ICD-10 - I10) 09/18/2024 Adult general medical examination (ICD-10 - Z00.00) Patient instructed to return to office Annually for Annual Wellness Visits to include annual screenings of Pain assessment, Functional Ability assessment, Cognitive Ability assessment, Fall Risk assessment, Depression screening and Bladder control screening. 10/15/2024 Type 2 diabetes mellitus with diabetic polyneuropathy (ICD-10 - E11.42) 09/18/2024 Type 2 diabetes mellitus with diabetic polyneuropathy (ICD-10 - E11.42) 09/11/2024 Dyslipidemia (ICD-10 - E78.5) 03/08/2024 Primary osteoarthritis (ICD-10 - M19.91) 03/08/2024 Dyslipidemia (ICD-10 - E78.5) 09/18/2024 Primary osteoarthritis (ICD-10 - M19.91) 09/18/2024 Dyslipidemia (ICD-10 - E78.5) 03/08/2024 Low back pain at multiple sites (ICD-10 - M54.50) 03/08/2024 Male erectile disorder (ICD-10 - F52.21) 09/18/2024 Low back pain at multiple sites (ICD-10 - M54.50) 03/08/2024 Chronic kidney disease, stage 3a (ICD-10 - N18.31) Encouraged increased fluid intake, 80 - 100 ounces per day 09/18/2024 Male erectile disorder (ICD-10 - F52.21) 09/18/2024 Chronic kidney disease, stage 3a (ICD-10 - N18.31) Encouraged increased fluid intake, 80 - 100 ounces per day 09/18/2024 Myalgia (ICD-10 - M79.10) Recommend trial of CoQ10 supplement 09/18/2024 BMI 28.0-28.9,adult (ICD-10 - Z68.28) Plan Of Treatment Next Appt Details Provider Name:True Basilio, 03/21/2025 09:00:00 AM, [address], [address], [place], [place], [id number], Insurance Providers Payer Name Payer Address Payer Phone Subscriber Number Group Number Insured Name Patient Relationship to Insured Coverage Start Date Coverage End Date MEDICARE PART B [address] [address] [place] [address] [id number] SUE MOONEY JR Self - patient is the insured [employer] MED[employer]ARE SUPPLEMENT [address] [address] [place], [place] [id number] SUE MOONEY JR Self - patient is the insured Medical (General) History Medical History History ICD Code DM hyperlipidemia Diabetic peripheral neuropathy HBP Declines Pneumovax 02/2016, 08/2016 Medication noncompliance with insulin Declines colon cancer screen ing - 08/2018, 08/2019, 11/2020, 05/2021, 02/2022, 02/2024 Declines all vaccines 08/2019, 11/2020, , 02/2022, 02/2024 Mild proliferative diabetic neuropathy - followed by Dr. Boss Surgical History Surgery Date(Month/Year) 3.5 cm basal cell removed from back by [facility] procedure 2006 left cataract 01/2011 right cataract 03/2021 Skin Cancer Removed from Upper Back 2023 Skin Lesion Removed from Behind Right Ea r 2023 Hospitalization History Reason Date(Month/Year) NONE
--- NOTE | 2025-02-15 08:00 | XR_ITS ---
FINAL REPORT CLINICAL HISTORY: LOW BACK PAIN OVER 3 MONTHS DURATION pain, radiates down both legs limited rom no surgeries COMPARISON: None FINDINGS: AP, lateral, and oblique views of the lumbar spine were obtained. There is no acute fracture or acute malalignment. Vertebral body height is preserved. There is moderate to severe multilevel degenerative disc disease which is more pronounced in the lower lumbar levels. No acute paraspinal abnormality is identified. IMPRESSION: Multilevel moderate to severe degenerative changes without acute osseous abnormalities lumbar spine. Reviewed, Interpreted and Dictated by Farrah Archer MD Transcribed by Kristi Up Authenticated and [facility]
== END 2025-02-15 23:59 | disposition home or self-care (01) ==
LOC: RAD 07:56
PROVIDERS: PCP Family Medicine; Visit Provider Nurse Practitioner
DX: M51.360 Other intervertebral disc degeneration, lumbar region with discogenic back pain only (principal)
CPT/HCPCS: 72110